=== PATIENT | female | born 1965 | race Caucasian/White ===

== ENCOUNTER 2018-07-10 09:03 | Emergency (ER) | payer OTHER, BC ==
[~2018-07-10] VITALS: Ht 157.5 cm; Wt 60.2 kg
[2018-07-10 09:13] VITALS: TEMP 97.2
[2018-07-10 09:43] LABS: BASO # 0.1 (0.0-0.2); BASO % 2.2 % (0.0-2.0); EOS # 0.3 (0.0-0.7); EOS % 6.9 % (0-4.0); GRAN # 2.7 (1.4-6.5); GRAN % 60.8 % (42.2-75.2); HEMATOCRIT 40.7 % (37.0-47.0); HEMOGLOBIN 13.2 g/dl (12.5-16.0); LYMPH % 22.8 % (20.0-51.0); MEAN CELL VOLUME 93 fl (80.0-100.0); MEAN CORPUSCULAR HEMOGLOBIN 30 pg (27.0-31.0); MEAN CORPUSCULAR HGB CONC 32 g/dl (33.0-37.0); MEAN PLATELET VOLUME 10.3 fl (7.4-10.4); MONO # 0.3 (0.1-0.6); MONO % 7.1 % (1.7-9.3); PLATELET COUNT 232 K/mm3 (130-400); RED BLOOD COUNT 4.38 M/mm3 (4.10-5.30); REDCELL DISTRIBUTION WIDTH-CV 13.7 % (11.5-14.5)
[2018-07-10 09:51] LABS: COLLECTION METHOD CLEAN CATCH
[2018-07-10 09:56] LABS: PH 8 (5-8); SQUAMOUS EPITHELIAL 0-2 /hpf; URINE APPEARANCE Clear; URINE BACTERIA None Seen /hpf; URINE BILIRUBIN Negative (NEGATIVE); URINE BLOOD Negative (NEGATIVE); URINE COLOR Straw; URINE GLUCOSE Negative (NEGATIVE); URINE KETONE Negative (NEGATIVE); URINE LEUKOCYTE ESTERASE Negative (NEGATIVE); URINE NITRATE Negative (NEGATIVE); URINE PROTEIN(semi-quant) Negative (NEGATIVE); URINE RBC None Seen /hpf; URINE UROBILINOGEN Negative (NEGATIVE)
[2018-07-10 10:01] LABS: ALBUMIN 4.2 gm/dL (3.5-5.0); BILIRUBIN,TOTAL 0.5 mg/dL (0.0-1.0); C-REACTIVE PROTEIN 0.6 mg/dL (0.0-0.9); CALCIUM 9.3 mg/dL (8.4-10.2); CREATININE, serum 0.86 (0.52-1.25); POTASSIUM 4.2 mmol/L (3.4-5.0); TOTAL PROTEIN 7.9 gm/dL (6.4-8.2)
[2018-07-10 12:15] VITALS: BP 129/84; PULSE 76
== END 2018-07-10 12:20 | disposition home or self-care (01) ==
LOC: COL.ER 09:03
PROVIDERS: Family Medicine
DX: R10.11 Right upper quadrant pain (principal)
CPT/HCPCS: J7030

== ENCOUNTER 2021-01-01 19:07 | Emergency (ER) | payer BC ==
[~2021-01-01] VITALS: Ht 157.5 cm; Wt 63.6 kg
[2021-01-01 19:25] VITALS: TEMP 98
[2021-01-01 20:15] VITALS: BP 117/62; PULSE 68
== END 2021-01-01 20:15 | disposition home or self-care (01) ==
LOC: COL.ER 19:07
DX: S61.211A Laceration without foreign body of left index finger without damage to nail, initial encounter (principal); Z23 Encounter for immunization; Z88.5 Allergy status to narcotic agent; W26.8XXA Contact with other sharp object(s), not elsewhere classified, initial encounter